=== PATIENT | male | born 1990 | race Caucasian/White ===

== ENCOUNTER 2016-11-11 10:28 | Emergency (ER) | payer SELFPAY ==
[2016-11-11] MEDS ORDERED: MORPHINE SULFATE 10 MG/ML INJ IM ONE (10:44)
--- NOTE | 2016-11-11 10:51 | ER Document Report ---
ED Medical Screen (RME) - General Chief Complaint: Elbow Injury Stated Complaint: INJURY/ELBOW PAIN Time Seen by Provider: 11/11/16 10:49 Notes: The patient is a 26-year-old male who fell off a ladder and landed on his right elbow. He noticed a laceration over his right lateral elbow. tetanus up-to- date. Denies numbness, tingling, heavy bleeding or shoulder pain. PE: 5 cm laceration over right elbow, N/V intact distally. I have greeted and performed a rapid initial assessment of this patient. A comprehensive ED assessment and evaluation of the patient, analysis of test results and completion of the medical decision making process will be conducted by additional ED providers. TRAVEL OUTSIDE OF THE [place] IN LAST 30 DAYS: No - Related Data Allergies/Adverse Reactions: No Known Drug Allergies Allergy (Verified 11/11/16 10:35) Past Medical History - Past Medical History Cardiac Medical History: Reports: Hx Congestive Heart Failure Denies: Hx Coronary Artery Disease, Hx Pulmonary Embolism Pulmonary Medical History: Denies: Hx Asthma, Hx Bronchitis Neurological Medical History: Denies: Hx Migraine Renal/ Medical History: Denies: Hx Peritoneal Dialysis, Hx Renal Insufficiency GI Medical History: Denies: Hx Gastritis, Hx Gastroesophageal Reflux Disease, Hx Ulcerative Colitis Musculoskeltal Medical History: Denies Hx Gout, Denies Hx Musculoskeletal Trauma Skin Medical History: Denies Hx Cellulitis, Reports Hx Eczema Psychiatric Medical History: Reports: Hx Attention Deficit Hyperactivity Disorder Past Surgical History: Reports: Hx Oral Surgery - Immunizations Hx Diphtheria, Pertussis, Tetanus Vaccination: Yes
[2016-11-11] MEDS ORDERED: LIDOCAINE 1% INJ-PF (10 MG/ML) 30 ML SDV INJ ONE (11:18)
--- NOTE | 2016-11-11 11:19 | RADIOLOGY REPORT (SQ) ---
EXAM DESCRIPTION: ELBOW RIGHT AP/LAT COMPLETED DATE/TIME: 11/11/2016 11:09 am REASON FOR STUDY: Fall/elbow deformity with laceration COMPARISON: None. NUMBER OF VIEWS: Four views. TECHNIQUE: AP, lateral, and both oblique radiographic images acquired of the right elbow. LIMITATIONS: None. FINDINGS: MINERALIZATION: Normal. BONES: No acute fracture or dislocation. No worrisome bone lesions. JOINT: No effusion. SOFT TISSUES: There are faint radiolucencies in the posterior soft tissues presumably due to superfic ial injury/laceration. No foreign body. OTHER: No other significant finding. IMPRESSION: POSTERIOR SOFT TISSUE INJURY. NO SIGNIFICANT BONY FINDINGS. TECHNICAL DOCUMENTATION: JOB ID: [id number] [employer]- All Rights Reserved
--- NOTE | 2016-11-11 11:29 | ER Document Report ---
ED General - General Chief Complaint: Elbow Injury Stated Complaint: INJURY/ELBOW PAIN Time Seen by Provider: 11/11/16 10:49 Mode of Arrival: Ambulatory Information source: Patient Notes: 26-year-old male tetanus up-to-date presents with right elbow laceration just prior to arrival. Patient denies any neurological deficits denies any weakness numbness. TRAVEL OUTSIDE OF THE [place] IN LAST 30 DAYS: No - HPI Onset: Just prior to arrival Onset/Duration: Sudden Quality of pain: Sharp Severity: Moderate Pain Level: 2 Associated symptoms: Other Exacerbated by: Movement Relieved by: Denies Similar symptoms previously: No Recently seen / treated by doctor: No - Related Data Allergies/Adverse Reactions: No Known Drug Allergies Allergy (Verified 11/11/16 10:35) Past Medical History - Social History Smoking Status: Current Every Day Smoker Cigarette use (# per day): Yes Chew tobacco use (# tins/day): No Smoking Education Provided: No Frequency of alcohol use: None Drug Abuse: None Family History: Reviewed & Not Pertinent Patient has suicidal ideation: No Patient has homicidal ideation: No - Past Medical History Cardiac Medical History: Reports: Hx Congestive Heart Failure Denies: Hx Coronary Artery Disease, Hx Pulmonary Embolism Pulmonary Medical History: Denies: Hx Asthma, Hx Bronchitis Neurological Medical History: Denies: Hx Migraine Renal/ Medical History: Denies: Hx Peritoneal Dialysis, Hx Renal Insufficiency GI Medical History: Denies: Hx Gastritis, Hx Gastroesophageal Reflux Disease, Hx Ulcerative Colitis Musculoskeltal Medical History: Denies Hx Gout, Denies Hx Musculoskeletal Trauma Skin Medical History: Denies Hx Cellulitis, Reports Hx Eczema Psychiatric Medical History: Reports: Hx Attention Deficit Hyperactivity Disorder Past Surgical History: Reports: Hx Oral Surgery - Immunizations Hx Diphtheria, Pertussis, Tetanus Vaccination: Yes Review of Systems - Review of Systems Notes: PHYSICAL EXAMINATION: GENERAL: Well-appearing, well-nourished and in no acute distress. HEAD: Atraumatic, normocephalic. EYES: Pupils equal round and reactive to light, extraocular movements intact, sclera anicteric, conjunctiva are normal. ENT: Nares patent, oropharynx clear without exudates. Moist mucous membranes. NECK: Normal range of motion, supple without lymphadenopathy LUNGS: Breath sounds clear to auscultation bilaterally and equal. No wheezes rales or rhonchi. HEART: Regular rate and rhythm without murmurs ABDOMEN: Soft, nontender, nondistended abdomen. No guarding, no rebound. No masses appreciated. Musculoskeletal: Normal range of motion, no pitting or edema. No cyanosis. NEUROLOGICAL: Cranial nerves grossly intact. Normal speech, normal gait. Normal sensory, motor exams PSYCH: Normal mood, normal affect. SKIN: No open fracture is noted muscle sheath is seen no foreign body noted laceration is 5 cm in a V shape warm, Dry, normal turgor, no rashes or lesions noted. Course - Re-evaluation Re-evalutation: 11/11/16 12:41 No open fracture is noted, it was washed extensively, patient will be put on antibiotics 7 sutures were used to close wound After performing a Medical Screening Examination, I estimate there is LOW risk for OPEN FRACTURE, COMPARTMENT SYNDROME, TENDON RUPTURE, ACUTE NEUROVASCULAR INJURY, or RETAINED FOREIGN BODY, thus I consider the discharge disposition reasonable. Also, there is no evidence or peritonitis, sepsis, or toxicity. I have reevaluated this patient multiple times and no significant life threatening changes are noted. The patient and I have discussed the diagnosis and risks, and we agree with discharging home with close follow-up with the understanding that symptoms and presentations can change. We also discussed returning to the Emergency Department immediately if new or worsening symptoms occur. We have discussed the symptoms which are most concerning (e.g., changing or worsening pain, fever, numbness, weakness, cool or painful digits) that necessitate immediate return. - Diagnostic Test Radiology reviewed: Image reviewed, Reports reviewed - No acute fracture Procedures - Laceration/Wound Repair Right Elbow Wound length (cm): 7 Wound's Depth, Shape: Into muscle, Irregular, Flap Laceration pre-procedure: Sterile PPE donned, Chloraprep applied, Sterile drapes applied, Shur-Clens applied Anesthetic type: 1% Lidocaine Volume Anesthetic (mLs): 15 Wound explored: Clean, No foreign body removed Irrigated w/ Saline (mLs): 2,000 Wound Debrided: Moderate Wound Repaired With: Sutures Suture Size/Type: 3:0, Ethilon Number of Sutures: 7 Post-procedure wound care: Sterile dressing applied Post-procedure NV exam normal: Yes Complications: No Discharge - Discharge Clinical Impression: Elbow laceration Qualifiers: Encounter type: initial encounter Laterality: right Qualified Code(s): S51.011A - Laceration without foreign body of right elbow, initial encounter Condition: Stable Disposition: HOME, SELF-CARE Instructions: Laceration Care ([facility]), Prophylactic Antibiotic ([facility]), Soap Cleansing ([facility]) Additional Instructions: Please follow-up in 10-14 days for removal of sutures or immediately if there is any sign of infection or any other concerns Prescriptions: Cephalexin Monohydrate [Keflex 500 mg Capsule] 500 mg PO QID #40 capsule Oxycodone HCl/Acetaminophen [Percocet 5-325 mg Tablet] 1 tab PO ASDIR PRN #10 tab PRN Reason:
[2016-11-11 13:11] VITALS: BP 109/61
== END 2016-11-11 13:11 | disposition home or self-care (01) ==
LOC: ER 10:28
PROC: 0HQDXZZ Repair Right Lower Arm Skin, External Approach (ICD-10-PCS; principal; 2016-11-11)
DX: S51.011A Laceration without foreign body of right elbow, initial encounter (principal); W11.XXXA Fall on and from ladder, initial encounter; Y93.H3 Activity, building and construction; Y92.009 Unspecified place in unspecified non-institutional (private) residence as the place of occurrence of the external cause; F17.210 Nicotine dependence, cigarettes, uncomplicated
CPT/HCPCS: 12002; 99283; 96372; 73070; J3490; J2270

== ENCOUNTER 2019-02-17 09:59 | Emergency (ER) | payer MEDICAID ==
--- NOTE | 2019-02-17 10:55 | ER Document Report ---
HPI - HPI Time Seen by Provider: 02/17/19 10:14 Pain Level: 2 Context: Patient is a 28-year-old male presents to the emergency department with a chief complaint of right eye pain. Patient states 3 days ago he felt an irritation to his eye. Patient states he did get lubricating eyedrops and when attempting to place the drops in his eye he would move the tip of the plastic bottle over the sclera as this seemed to help with his discomfort. Patient reports he pulled back his bottom eyelid and noticed a piece of black foreign body. Patient states he was able to easily remove it but has had pain and redness to the eye since. Patient was seen at the [facility] yesterday and prescribed a Vigamox 1 drop 3 times a day. Patient states they were unable to perform an appropriate eye exam as they did not have the correct supplies. Patient states the pain is worse and decided to come to the emergency department. Patient reports blurred vision. Patient denies specific injury to the eye such as a blunt trauma or incident where something flew into his eye. - CONSTITUTIONAL Constitutional: DENIES: Fever, Chills - EENT EENT: REPORTS: Eye problems - R eye Past Medical History - General Information source: Patient - Social History Smoking Status: Current Every Day Smoker Frequency of alcohol use: None Drug Abuse: None Lives with: Family Family History: Reviewed & Not Pertinent Patient has suicidal ideation: No Patient has homicidal ideation: No - Past Medical History Cardiac Medical History: Reports: Hx Congestive Heart Failure Denies: Hx Coronary Artery Disease, Hx Pulmonary Embolism Pulmonary Medical History: Reports: None Denies: Hx Asthma, Hx Bronchitis EENT Medical History: Reports: None Neurological Medical History: Reports: None. Denies: Hx Migraine Endocrine Medical History: Reports: None Renal/ Medical History: Reports: None. Denies: Hx Peritoneal Dialysis, Hx Renal Insufficiency Malignancy Medical History: Reports None GI Medical History: Reports: None. Denies: Hx Gastritis, Hx Gastroesophageal Reflux Disease, Hx Ulcerative Colitis Musculoskeletal Medical History: Reports None, Denies Hx Gout, Denies Hx Musculoskeletal Trauma Skin Medical History: Denies Hx Cellulitis, Reports Hx Eczema Psychiatric Medical History: Reports: Hx Attention Deficit Hyperactivity Disorder Traumatic Medical History: Reports: None Infectious Medical History: Reports: None Past Surgical History: Reports: Hx Oral Surgery - Immunizations Hx Diphtheria, Pertussis, Tetanus Vaccination: Yes Vertical Provider Document - CONSTITUTIONAL Agree With Documented VS: Yes Exam Limitations: No Limitations General Appearance: Mild Distress - INFECTION CONTROL TRAVEL OUTSIDE OF THE [place] IN LAST 30 DAYS: No - HEENT HEENT: Atraumatic, Conjuctival Injection, Normal ENT Exam, Normocephalic, PERRLA - RESPIRATORY Respiratory: Breath Sounds Normal, No Respiratory Distress - CARDIOVASCULAR Cardiovascular: Regular Rate, Regular Rhythm - GI/ABDOMEN Gastrointestinal: Abdomen Soft, Abdomen Non-Tender, Normal Bowel Sounds - MUSCULOSKELETAL/EXTREMETIES Musculoskeletal/Extremeties: FROM, Non-Tender - NEURO Level of Consciousness: Awake, Alert, Appropriate - DERM Integumentary: Warm, Dry, No Rash Course - Re-evaluation Re-evalutation: 02/17/19 11:[address] Oseguera who states to continue using the Vigamox as prescribed. He states the patient can use artificial tears without preservatives in between the antibiotic drops. He also recommends erythromycin ointment to be used at night. He states his office will be in contact with the patient in the next 24 to 48 hours for a follow-up. I did make patient aware of this. I tried multiple times to get pressures of the eye without success. There was a malfunction of the Jose Francisco-Pen. Patient has an obvious corneal abrasion with floor seen uptake as described in the eye procedure call them. Patient to continue antibiotic drops, erythromycin ointment, and artificial tears without preservatives. I did inform the patient the office will be in contact with him to make a follow-up appointment but if he does not hear from them in 1 day to call them. Patient to return for any change in vision or worsening signs or symptoms. - Vital Signs Vital signs: Temp Pulse Resp BP Pulse Ox 98.3 F 58 L 20 114/63 97 02/17/19 10:02 02/17/19 10:02 02/17/19 10:02 02/17/19 10:02 02/17/19 10:02 Procedures - Eye Procedure Right Time completed: 10:45 Fluorescein applied: Right Antibiotic Oinment/Drps Admin: Right eye Slit lamp used: No Notes: 02/17/19 11:09 Tetracaine drops x 2 applied to right eye before exam. Patient reports relief. I was unable to obtain pressures of the right I do to malfunction of the Jose Francisco- Pen. I did see care of another provider who also could not get the Jose Francisco-Pen to appropriately work. Visual acuity is documented. Eyes picture: 1 - Linear area of fluorscene uptake to the inferior cornea that extends into the scerla, patient has significant conjunctival injection noted to the inferior aspect of the scerla. Discharge - Discharge Clinical Impression: Corneal abrasion Qualifiers: Encounter type: initial encounter Laterality: right Qualified Code(s): S05.01XA - Injury of conjunctiva and corneal abrasion without foreign body, right eye, initial encounter Condition: Stable Disposition: HOME, SELF-CARE Additional Instructions: Today you were seen in the emergency department for right eye pain. It does appear that you have a corneal abrasion to the right lower eye. Continue using the Vigamox antibiotic drops as previously prescribed. You may use artificial tears throughout the day for comfort. Make sure the artificial tears contain no preservatives. I also given you a erythromycin ointment to apply at night. Use only as directed. I have consulted with Dr. Oseguera who agreed with this treatment plan per my reported physical assessment and states his office will be in contact with you in the next 24 hours to make an appointment. I have attached his contact information. Please call his office if you have not heard anything within the next day. Corneal Abrasion You have a corneal abrasion, a scratch on the surface of the eye. The pain of a corneal abrasion feels like a sharp particle in the eye. Usually, antibiotics are placed in the eye to prevent infection. Occasionally, medication will be placed in the eye to dilate the pupil. This is done to relieve some of your discomfort and is only temporary. Pain medication may be required. Don't drive or operate machinery until you have the use of both your eyes. The abrasion usually is healed in one or two days. A follow-up examination to confirm healing is recommended. Call the doctor or return at once if you develop severe pain, decreasing vision, eye swelling, or purulent drainage. Prescriptions: Erythromycin Base [Erythromycin Oph 1 gm Oint Ud] 1 applic OD QHS #1 tube Acetaminophen with Codeine [Tylenol #3 Tablet] 1 each PO Q6HP PRN #10 tablet PRN Reason: Forms: Return to Work Referrals: RENEA OSEGUERA DO [ACTIVE STAFF] - Follow up as needed
[2019-02-17] MEDS ORDERED: TETRACAINE HCL 0.5% OPH SOLN 4 ML OD ONE (11:06)
[2019-02-17] MEDS ORDERED: ACETAMINOPHEN WITH CODEINE #3 TABLET PO ONE (11:22)
[2019-02-17 11:24] VITALS: BP 110/67
== END 2019-02-17 11:37 | disposition home or self-care (01) ==
LOC: ER 09:59
DX: S05.01XA Injury of conjunctiva and corneal abrasion without foreign body, right eye, initial encounter (principal); H57.11 Ocular pain, right eye; X58.XXXA Exposure to other specified factors, initial encounter; F17.200 Nicotine dependence, unspecified, uncomplicated; I50.9 Heart failure, unspecified
CPT/HCPCS: 99283; J3490